=== PATIENT | female | born 2000 | race Caucasian/White ===

== ENCOUNTER 2020-05-08 10:25 | Emergency (ER) | payer BC, SELFPAY ==
[2020-05-08 10:34] VITALS: BP 143/101; PULSE 87; RESP 18; TEMP 37.1; O2SAT 98; BMI 35.6
--- NOTE | 2020-05-08 10:41 | ED_ITS ---
HPI - Dental/Oral General: Chief complaint: Dental/Oral Stated complaint: dental pain Time Seen by Provider: 05/08/20 10:30 History of Present Illness: HPI Narrative: Patient is a 20-year-old female who comes to the ED with dental pain. Patient says pain started last Thursday. She then went to [facility] and [place] on Thursday and was given a shot of Rocephin and sent home with a prescription for clindamycin. Patient was seen again at [facility] on Thursday to reevaluate and receive another IM dose of Rocephin. Swelling had improved on Thursday. Patient woke up today with increased pain and swelling. Patient return to the [facility] today to get another shot of Rocephin but the provider sent patient to the ED to get CT scan and IV antibiotics since swelling and pain had worsened. Patient denies any airway obstruction, trouble breathing, fever, chills, nausea/vomiting, bladder or bowel symptoms. Associated symptoms: Denies fever(s) or odynophagia Review of Systems Const: Denies: fever(s), chills or fatigue Eyes: Denies: change in vision or eye discomfort ENMT: Reports: dental pain and other (Right sided facial swelling and pain over right lower mandible.); Denies: throat pain, odynophagia, nasal discharge or nasal congestion Card: Denies: chest pain, palpitations, edema, swelling of feet/ankles, dyspnea on exertion or orthopnea Resp: Denies: dyspnea, productive cough or non-productive cough GI: Denies: abdominal pain, nausea, vomiting, diarrhea, constipation or hematochezia : Denies: flank pain, dysuria or hematuria Musc: Denies: neck pain, back pain or extremity swelling Skin/Breast: Denies: rash or new lesions Neuro: Denies: headache(s), numbness in extremities or weakness in extremities PFSH ED PFSH: Social History Smoking and tobacco status: never smoked Alcohol intake: current Alcohol intake frequency: holidays/special occasions only History of recent travel: No Current gender identity: Female Female Reproductive History: Date of last menstrual period: 02/18/20 Physical Exam Const: COMMON NORMALS: no acute distress, patient oriented x3, healthy appearing and alert HENMT: COMMON NORMALS: normocephalic HEAD & SCALP: normocephalic FACE & SINUS: edema on the right mandible and submandibular and Facial tenderness on exam of face and sinuses on the right mandible and submandibular MOUTH: Normal oral and palatal mucosa present THROAT: posterior oropharynx normal and uvula midline Eye: COMMON NORMALS: Equal, round and reactive pupils present PUPIL: Yes Equal, round and reactive pupils present Neck/C-Spine: COMMON NORMALS: supple GENERAL: Yes normal visual inspection Resp: COMMON NORMALS: normal respiratory effort, No retractions, No use of accessory muscles and clear to auscultation bilaterally AUSCULTATION: clear to auscultation bilaterally Cardio: COMMON NORMALS: regular rate, regular rhythm, S1 normal heart sound present, S2 normal heart sound present, No gallops present (Cardio), No clicks present (Cardio), No murmurs present (Cardio) and Peripheral pulses 2+ throughout RATE: regular rate RHYTHM: regular rhythm HEART SOUNDS: S1 normal heart sound present and S2 normal heart sound present PERIPHERAL PULSES: Peripheral pulses 2+ throughout GI: COMMON NORMALS: Normal to inspection, nondistended, normoactive bowel sounds present, Soft to palpation, non-tender and no masses PALPATION: Yes Soft to palpation : COMMON NORMALS: Yes no CVA tenderness BLADDER/KIDNEY EXAM: Yes no CVA tenderness Back/Pelvis: COMMON NORMALS: no CVA tenderness Extremity: COMMON NORMALS: normal to inspection and no pedal edema Neuro: COMMON NORMALS: patient oriented x3 and moves all extremities SENS ORIUM/ORIENTATION: Yes alert Skin: COMMON NORMALS: no rashes or lesions noted GENERAL SKIN EXAM: no rashes or lesions noted and dry skin Course Consultations: Consultation #1: I contacted Dr. Solis with [facility] and told him about the patient and the CT findings of a submandibular abscess. He agreed to see the patient tomorrow 05/09 at 10 AM and to make sure that she does not have anything to eat or drink after midnight. He told me to give her a dose of Decadron while here in the ED to try to help with the swelling. He gave me the office address and contact number to provide the patient [address] [facility] [place] phone number [phone]. Vital Signs: Vital signs: Vital Signs Temperature 98.7 F 05/08/20 10:34 Pulse Rate 84 05/08/20 15:20 Respiratory Rate 18 05/08/20 15:20 Blood Pressure 109/72 05/08/20 15:20 Pulse Oximetry 100 05/08/20 15:20 MDM - Dental/Oral MDM Narrative: Medical decision making narrative: Patient is a 18-year-old female who comes to the ED with dental pain and facial swelling. She was sent here by [facility] due to increased facial swelling after multiple doses of antibiotic treatment. They recommended patient get IV antibiotics and a CT scan. CT neck was performed and showed right submandibular abscess approximately 4.1 x 1.4 cm. Airway is patent. White blood cell count 17.9. Patient was given IV fluids, pain meds and IV clindamycin while here in the ED. I contacted Dr. Solis with [facility] in [facility] and he said he will see patient tomorrow 10 AM for surgery. Patient was discharged and given all the contact information for Dr. Solis's office. She was told to be n.p.o. after midnight tonight. Patient understood and agreed with plan. Lab Data: Attestation: I reviewed the patient's lab results. Labs: Lab Results 05/08/20 05/08/20 05/08/20 Range/Units 11:27 11:27 11:27 WBC 17.9 H (4.0-10.0) 10^3/ uL RBC 4.97 (4.1-5.3) 10^6/u L Hgb 14.1 (11.5-15.3) g/dL Hct 44.9 (37.0-47.0) % MCV 90.3 (81-99) fL MCH 28.4 (28.0-34.0) pg MCHC 31.4 (30.0-36.0) g/dL RDW 12.8 (12.1-15.1) % Plt Count 281 (130-400) 10^3/c mm MPV 8.9 (7.4-10.4) fL Neut % (Auto) 74.1 % Lymph % (Auto) 16.4 % [place] % (Auto) 9.0 % Eos % (Auto) 0.1 % Baso % (Auto) 0.1 % Neut # (Auto) 13.24 H (1.8-7.7) 10^3/u L Lymph # (Auto) 2.9 (0.8-4.8) 10^3/u L [place] # (Auto) 1.6 H (0.2-0.9) 10^3/u L Eos # (Auto) 0.0 (0.0-0.8) 10^3/u L Baso # (Auto) 0.0 (0.0-0.1) 10^3/u L Nucleated RBC % (a uto) 0 % Nucleated RBCs # 0.0 /100WBC Sodium 140 (136-145) mmol/L Potassium 3.7 (3.5-5.1) mmol/L Chloride 102 (98-107) mmol/L Carbon Dioxide 26 (22-29) mmol/L Anion Gap 15.7 (5-19) BUN 16 (6-20) mg/dL Creatinine 0.8 (0.5-0.9) mg/dL GFR Calculation 89.7 L (90-130) mL/min Glucose 90 (65-115) mg/dL Calculated Osmolal ity 286 (285-295) mOsm/k g Calcium 9.6 (8.5-10.5) mg/dL Total Bilirubin 0.2 (0.15-1.2) mg/dL AST 15 (0-32) U/L ALT 16 (0-33) U/L Alkaline Phosphata se 93 (35-105) IU/L Total Protein 7.6 (6.6-8.7) g/dL Albumin 4.0 (3.5-5.2) g/dL Globulin 3.6 (1.3-4.6) g/dL HCG, Qual Negative (Negative) Imaging Data^: Other CT: Attestation: I personally reviewed and interpreted this imaging study as follows: Radiologist's impression: [address] [address] [address] Scan Report Signed Patient: Almaz Almaraz Unit #: [id number] : 2000 Age/Sex: 20 / F ADM Date: 05/08/20 Loc: ER Room/Bed: Attending Dr: Ordering Provider/Ordering MD: Jose Francisco Michael Date of Service: 05/08/20 Procedure(s): CT neck w con* [id number] Accession Number(s): [id number] Report Number: [id number] WS: [id number] CT NECK TECHNIQUE: Contrast-enhanced CT of the neck with coronal and sagittal reformatted images. CLINICAL INFORMATION: right lower jaw swelling-possible abscess COMPARISON: None. DLP: 620.[address] scans at [facility] use at least one of these dose optimization techniques: automated exposure control; mA and/or kV adjustment per patient size (includes targeted exams where dose is matched to clinical indication); or iterative reconstruction. FINDINGS: Peripheral enhancing low-attenuation collection in the right submandibular space consistent with abscess. Lobulated collection measures approximately 4.1 x 1.4 CM. Periapical lucency about the right posterior molar consistent with odontogenic abscess. Mass effect on the right submandibular gland. Enlarged submental and submandibular lymph nodes. Thickening of the platysma. Surrounding inflammatory stranding and edema. No evidence of osteomyelitis in the right mandible. Parotid glands are normal. Enlarged cervical lymph nodes bilaterally likely reactive. No evidence of supraglottic or glottic mass. Airway is patent. Normal thyroid gland. Lung apices are well aerated. Notified DANAE Mixon at 05/08/2020 12:[address]/CT neck w con* [id number] IMPRESSION: 1. Peripherally enhancing lobulated abscess of the right submandibular space likely odontogenic in origin described above. Mass effect on the floor of mouth and submandibular gland. 2. Thickening of the right platysma with inflammatory stranding and edema. Airway remains patent. 3. Multiple enlarged cervical lymph nodes bilaterally likely reactive. 4. Normal supraglottic and glottic airway. Dictated By: Denny Sanz MD Signed By: Denny Sanz MD Signed Date/Time: 05/08/20 1246 DD/ 1237 Discharge Plan Discharge Patient Disposition: Home Clinical Impression: Abscess of submandibular region, Pain, dental Condition: Stable Prescriptions: No Action clindamycin HCl 300 mg capsule 300 mg PO QID 7 Days Qty: 28 RF: 0 Tylenol Extra Strength 500 mg Tablet 1,000 mg PO PRN RF: 0 ibuprofen 200 mg Tablet 800 mg PO PRN RF: 0 Discharge Orders: Discharge Order (Routine); Ordered 05/08/20 Ordered By: Jose Francisco Michael Discharge Diet: Regular Patient Instructions: Dental Abscess (ED) Activity Restrictions/Additional Instructions: Remember no food or drink after midnight. follow-up with medical provider as directed. Dr. Solis Oral Surgeon has you scheduled at 10am. [address] [place], [place] [phone]. Return to the ER or your medical provider if condition worsens. Please read and understand discharge instructions. If any questions, please ask. Discharge Date/Time: 05/08/20 15:20 Coding Level of Care Code ED Amusement Machine Mechanic for Chg Fwd Exam Comprehensive
[2020-05-08 10:45] VITALS: BP 143/101; PULSE 103; RESP 17; O2SAT 99
--- NOTE | 2020-05-08 10:56 | CT_ITS ---
WS: [id number] CT NECK TECHNIQUE: Contrast-enhanced CT of the neck with coronal and sagittal reformatted images. CLINICAL INFORMATION: right lower jaw swelling-possible abscess COMPARISON: None. DLP: 620.[address] scans at [facility] use at least one of these dose optimization techniques: automat ed exposure control; mA and/or kV adjustment per patient size (includes targeted exams where dose is matched to clinical indication); or iterative reconstruction. FINDINGS: Peripheral enhancing low-attenuation collection in the right submandibular space consistent with absc ess. Lobulated collection measures approximately 4.1 x 1.4 CM. Periapical lucency about the right pos terior molar consistent with odontogenic abscess. Mass effect on the right submandibular gland. Enlar ged submental and submandibular lymph nodes. Thickening of the platysma. Surrounding inflammatory str anding and edema. No evidence of osteomyelitis in the right mandible. Parotid glands are normal. Enlarged cervical lymph nodes bilaterally likely reactive. No evidence of supraglottic or glottic mass. Airway is patent. Normal thyroid gland. Lung apices are well aerated. Notified DANAE Mixon at 05/08/2020 12:[address]/CT neck w con* [id number] IMPRESSION: 1. Peripherally enhancing lobulated abscess of the right submandibular space l ikely odontogenic in origin described above. Mass effect on the floor of mouth and submandibular gland. 2. Thickening of the right platysma with inflammatory stranding and edema. Air way remains patent. 3. Multiple enlarged cervical lymph nodes bilaterally likely reactive. 4. Normal supraglottic and glottic airway.
[2020-05-08] MEDS: sodium chloride 0.9% 1,000 ML 999 ML IV (11:31)
[2020-05-08] MEDS: ondansetron 2 mg/ML SDV 2 mL 4 MG IVP (11:32)
[2020-05-08 11:33] VITALS: RESP 16
[2020-05-08] MEDS: morphine 4 mg/mL SDV 1 mL 2 MG IVP (11:33)
[2020-05-08] MEDS: clindamycin 900 MG/50 ML PREMIX 100 MG IV (11:36)
[2020-05-08 11:45] LABS: Basophils % 0.1 %; Eosinophils % 0.1 %; Hematocrit 44.9 % (37.0-47.0); Hemoglobin 14.1 g/dL (11.5-15.3); Lymphocytes # 2.9 10^3/uL (0.8-4.8); Lymphocytes % 16.4 %; Mean Corpuscular HGB Conc 31.4 g/dL (30.0-36.0); Mean Corpuscular Hemoglobin 28.4 pg (28.0-34.0); Mean Corpuscular Volume 90.3 fL (81-99); Mean Platelet Volume 8.9 fL (7.4-10.4); Monocytes # 1.6 10^3/uL (0.2-0.9); Neutrophils # 13.24 10^3/uL (1.8-7.7); Neutrophils % 74.1 %; Nucleated Red Blood Cells % 0 %; Platelet Count 281 10^3/cmm (130-400); Red Blood Count 4.97 10^6/uL (4.1-5.3); Red Cell Distribution Width 12.8 % (12.1-15.1); White Blood Count 17.9 10^3/uL (4.0-10.0)
[2020-05-08 11:51] LABS: Alanine Aminotransferase 16 U/L (0-33); Alkaline Phosphatase 93 IU/L (35-105); Aspartate Amino Transferase 15 U/L (0-32); Blood Urea Nitrogen 16 mg/dL (6-20); Calcium 9.6 mg/dL (8.5-10.5); Carbon Dioxide 26 mmol/L (22-29); Chloride 102 mmol/L (98-107); Globulin 3.6 g/dL (1.3-4.6); Glomerular Filtration Rate 89.7 mL/min (90-130); Glucose 90 mg/dL (65-115); Osmolality Calculated 286 mOsm/kg (285-295); Sodium 140 mmol/L (136-145); Total Bilirubin 0.2 mg/dL (0.15-1.2); Total Protein 7.6 g/dL (6.6-8.7)
[2020-05-08 11:52] LABS: HCG, Serum Qual Negative (Negative)
[2020-05-08 11:54] LABS: Anion Gap 15.7 (5-19)
[2020-05-08 11:55] LABS: Potassium 3.7 mmol/L (3.5-5.1)
[2020-05-08 12:02] VITALS: BP 95/68; RESP 15; O2SAT 98
[2020-05-08] MEDS: iohexol 300 mg/mL 100 mL Btl IV (12:23)
[2020-05-08 13:55] VITALS: BP 107/58; PULSE 81; RESP 16; O2SAT 98
[2020-05-08] MEDS: dexamethasone 4 mg/mL INJ 8 MG IVP (14:50)
[2020-05-08] MEDS: HYDROcodone-acetaminophen 7.5-325 mg Tablet 1 TAB PO (15:19)
[2020-05-08 15:20] VITALS: BP 109/72; PULSE 84; RESP 18; O2SAT 100
== END 2020-05-08 15:20 | disposition home or self-care (01) ==
PROVIDERS: Emergency Provider Physician Assistant
DX: K12.2 Cellulitis and abscess of mouth (principal)
CPT/HCPCS: 12345; 70491; 80053; 84703; 85025; 87040; 96365; 96375; 99283; 99284; J1100; J2270; J2405; J3490; J7030; Q9967